=== PATIENT | female | born 1940 | race Caucasian/White ===

== ENCOUNTER → 2016-03-30 | Outpatient (CLI) | payer OTHER ==
--- NOTE | 2016-03-30 17:21 | DX ---
Chest, PA and Lateral History: Cough and congestion since February Comparison: None Findings: Lungs are clear, without infiltrate or consolidation. Heart size is mildly enlarged. The pu lmonary vascularity is normal.. There is no adenopathy or mass lesion. There is no pleural effusion . The patient has a prominent thoracic kyphosis. There is a likely old mild T8 superior endplate compr ession. Impression: 1. No evidence for pneumonia 2. Mild cardiomegaly without failure 3. Mild T8 compression, likely old. This patient might benefit from a DEXA scan. If there are any old outside x-rays of the thoracic spine, we would be happy to review them, to assess for interval nguyen e.
== END ==
LOC: FIMAGING 16:48
PROVIDERS: ATTEND Family Medicine
DX: I51.7 Cardiomegaly (principal)

== ENCOUNTER 2017-05-20 13:38 | Observation (INO) | payer OTHER ==
--- NOTE | 2017-05-14 14:23 | CPEKG ---
Heart Rate: 99 RR Interval: 606 P-R Interval: 172 QRSD Interval: 74 QT Interval: 432 QTC Interval: 555 P [place]: 0 QRS [place]: 24 T Wave [place]: 69 EKG Severity - ABNORMAL ECG - EKG Impression: SINUS RHYTHM Electronically Signed By: Cecilio Pickard 14-May-2017 14:25:28
[2017-05-20] MEDS ORDERED: LR 1,000 ML IV ONE (14:12)
[2017-05-20] MEDS ORDERED: LIDOCAINE 1% 2 ML INJ ID PRN (14:12)
[2017-05-20] MEDS ORDERED: LIDOCAINE 1% 2 ML INJ ONE (14:13)
--- NOTE | 2017-05-20 14:23 | PDHPUP ---
History & Physical Update H&P update statement: This history and physical update is based on an assessment of the patient which was completed after admission or registration (within 24 hours), but prior to the surgery/procedure. H&P update: H&P reviewed & patient examined, no change in patient's condition since H&P completed
[2017-05-20] MEDS ORDERED: MIDAZOLAM 2 MG/2 ML VIAL IVP ONE (15:19)
--- NOTE | 2017-05-20 15:22 | PDANEPAE ---
ANE History of Present Illness 76 year old woman for parathyroidectomy. History of TIA, HTN, Disordered Sleep , Anxiety, and chronic pain. ANE Past Medical History - Cardiovascular History Hx Hypertension: Yes Hx Arrhythmias: No Hx Chest Pain: No Hx Coronary Artery / Peripheral Vascular Disease: No Hx CHF / Valvular Disease: No Hx Palpitations: No - Pulmonary History Hx COPD: No Hx Asthma/Reactive Airway Disease: No Hx Recent Upper Respiratory Infection: No Hx Oxygen in Use at Home: No Hx Sleep Apnea: Yes Sleep Apnea Screening Result - Last Documented: Positive Pulmonary History Comment: ALLERGIES TO SMOKE & ENVIRONMENTAL - INHALER. 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 - NO CPAP - Neurologic History Hx Cerebrovascular Accident: Yes Hx Seizures: No Hx Dementia: No Neurologic History Comment: TIA 2013 - Endocrine History Hx Diabetes: Yes Endocrine History Comment: HYPOACTIVE THYROID - Renal History Hx Renal Disorders: Yes Renal History Comment: CKD - SPIRONOLACTONE - Liver History Hx Hepatic Disorders: Yes Hepatic History Comment: LYNNE - Neurological & Psychiatric Hx Hx Neurological and Psychiatric Disorders: Yes Neurological / Psychiatric History Comment: ANXIETY & MILD DEPRESSION - Cancer History Hx Cancer: No - Congenital Disorder History Hx Congenital Disorders: No - GI History Hx Gastrointestinal Disorders: Yes Gastrointestinal History Comment: ACID REFLUX - Other Health History Other Health History: DVT R YRS AGO W/BCPs - Chronic Pain History Chronic Pain: Yes (BACK PAIN) - Surgical History Prior Surgeries: APPENDECTOMY. BREAST REDUCTION. CARPAL TUNNEL R. CHOLECYSTECTOMY. HYSTERECTOMY/ TUMMY TUCK. EPIDURAL INJS. L TKA X2-R PARTIAL KNEE ANE Review of Systems Review of systems is: negative Review of Systems: - Exercise capacity METS (RN): 3 METS ANE Patient History - Allergies Allergies/Adverse Reactions: No Known Allergies Allergy (Unverified 06/29/13 09:40) - Home Medications Home Medications: Allopurinol [Allopurinol 100 MG (*)] 100 mg PO HS 06/29/13 [Last Taken 05/19/17] Docusate Sodium [Colace 100 MG (*)] 100 mg PO HS 06/29/13 [Last Taken 05/17/17] Hydrocodone/Acetaminophen [[place] 5/325 (*)] 1 each PO DAILY PRN 06/29/13 [Last Taken 05/13/17] Levothyroxine Sodium 75 mcg PO DAILY@06 06/29/13 [Last Taken 05/19/17] Omeprazole [Prilosec 20 mg] 20 mg PO DAILY 06/29/13 [Last Taken 05/13/17] Sennosides [Senokot] 2 each PO HS 06/29/13 [Last Taken 05/15/17] Spironolactone [Aldactone 25 MG (*)] 12.5 mg PO HS 06/29/13 [Last Taken 05/19/17 ] clonazePAM [Klonopin (*)] 0.5 mg PO HS 06/29/13 [Last Taken 05/19/17] Amlodipine Besylate 05/13/17 [Last Taken 05/19/17] Duloxetine HCl 05/13/17 [Last Taken Unknown] Herbals/Supplements -Info Only 05/13/17 [Last Taken Unknown] Promethazine HCl 05/13/17 [Last Taken 05/19/17] Cymbalta 05/20/17 [Last Taken 05/19/17] Vitamin D2 05/20/17 [Last Taken 05/19/17] - NPO status NPO Since - Liquids (Date): 05/20/17 NPO Since - Liquids (Time): 05:30 NPO Since - Solids (Date): 05/20/17 NPO Since - Solids (Time): 05:30 - Smoking Hx Smoking Status: Never smoked - Family Anes Hx Family Hx Anesthesia Complications: NEG ANE Labs/Vital Signs - Labs Result Diagrams: 05/14/17 12:43 - Vital Signs Blood Pressure: 135/84 Heart Rate: 90 Respiratory Rate: 20 O2 Sat (%): 94 Height: 161.29 cm Weight: 86.183 kg ANE Physical Exam - Airway Neck exam: FROM Mallampati Score: Class 2 Mouth exam: dentures - Pulmonary Pulmonary: no respiratory distress - Cardiovascular Cardiovascular: regular rate and rhythym - ASA Status ASA Status: III ANE Anesthesia Plan Anesthesia Plan: general endotracheal anesthesia
[2017-05-20] MEDS ORDERED: PROPOFOL/EMULSION 500 MG/50 ML BOTTLE IV ONE ×2 (15:23→16:42)
[2017-05-20] MEDS ORDERED: fentaNYL 250 MCG/5 ML INJ ONE (15:26)
[2017-05-20] MEDS ORDERED: BUPIVACAINE 0.25% 30 ML SDV ONE (15:31)
[2017-05-20] MEDS ORDERED: LIDOCAINE 1% 300 MG/30 ML SDV ONE (15:31)
[2017-05-20] MEDS ORDERED: LR 500 ML IV PRN (16:22)
[2017-05-20] MEDS ORDERED: PHENYLEPHRINE HCL 100 MCG/ML SYR IVP PRN (16:22)
[2017-05-20] MEDS ORDERED: HYDROCODONE/APAP 5/325 TAB PO PRN ×2 (16:22→17:49)
[2017-05-20] MEDS ORDERED: NALOXONE HCL 0.4 MG/ML INJ IVP PRN (16:22)
[2017-05-20] MEDS ORDERED: LABETALOL HCL 5 MG/ML 20 ML MDV IVP PRN (16:22)
[2017-05-20] MEDS ORDERED: ALBUTEROL 3 ML DEYVIAL IH PRN (16:22)
[2017-05-20] MEDS ORDERED: HYDROmorphONE/DILAUDID 1 MG/ML INJ IVP PRN (16:22)
[2017-05-20] MEDS ORDERED: PROMETHAZINE HCL 25 MG/ML INJ IVP PRN (16:22)
[2017-05-20] MEDS ORDERED: DEXAMETHASONE 4 MG/ML VIAL IVP PRN (16:22)
[2017-05-20] MEDS ORDERED: ONDANSETRON 4 MG/2 ML VIAL IVP PRN (16:22)
[2017-05-20] MEDS ORDERED: MEPERIDINE 25 MG/ML SYR IVP PRN (16:22)
[2017-05-20] MEDS ORDERED: OXYCODONE/APAP 5/325 TAB PO PRN (16:22)
[2017-05-20] MEDS ORDERED: TEMAZEPAM 15 MG CAP PO PRN (17:49)
--- NOTE | 2017-05-20 17:49 | POSTOPPROG ---
Post Op Note Date of Operation: 05/20/17 Surgeon: Corey Evans Anesthesiologist: Lelia Perez Anesthesia: GET(General Endotracheal) Pre-op Diagnosis: Hyperparathyroidism Post-op Diagnosis: Right superior parathyroid adenoma Procedure: Neck exploration, right superior parathyroidectomy Findings: all 4 glands identified, rt superior hypercellular, PTH 215 down to 45 Inf/Abcess present in the surg proc area at time of surgery?: No EBL: Minimal Specimen(s): Right parathyroid adenoma Right inferior neck bx Left inferior neck bx Left superior neck bx
[2017-05-20] MEDS ORDERED: LR 1,000 ML IV SCH (18:00)
[2017-05-20] MEDS ORDERED: fentaNYL 100 MCG/2 ML INJ ONE (18:15)
[2017-05-20] MEDS: fentaNYL 100 MCG/2 ML INJ IVP PRN ×2 (18:17→18:26)
[2017-05-20] MEDS ORDERED: clonazePAM 0.5 MG TAB PO SCH (21:00)
[2017-05-20] MEDS ORDERED: DOCUSATE SODIUM 100 MG CAP PO SCH (21:00)
[2017-05-20] MEDS ORDERED: SPIRONOLACTONE 25 MG TAB PO SCH (21:00)
[2017-05-20] MEDS ORDERED: ALLOPURINOL 100 MG TAB PO SCH (21:00)
[2017-05-20] MEDS ORDERED: CALCIUM CARBONATE 500 MG CHEWABLE TAB PO SCH (22:00)
[2017-05-20] MEDS: CALCIUM CARBONATE 1000 MG PO SCH (22:14)
[2017-05-21] MEDS: HYDROCODONE/APAP 5/325 TAB PO PRN ×3 (02:06→10:50)
[2017-05-21] MEDS ORDERED: LEVOTHYROXINE 75 MCG TAB PO SCH (06:00)
--- NOTE | 2017-05-21 06:40 | GOP ---
[f rep st] OPERATIVE REPORT DATE OF OPERATION: SURGEON: Corey Evans MD FLAT HAMMERER: Fidel Quinonez. ANESTHESIA: General endotracheal anesthesia was used. ANESTHESIOLOGIST: Dr. Kaylynn Perez. PREOPERATIVE DIAGNOSIS: Hyperparathyroidism. POSTOPERATIVE DIAGNOSIS: Right superior parathyroid adenoma. PROCEDURE PERFORMED: Right parathyroidectomy with neck biopsies. INDICATIONS: 76-year-old woman with a documented history of hyperparathyroidism. Sestamibi scan shows a possible adenoma in the mid part of the thyroid. FINDINGS: Four parathyroid glands identified, the largest being over 800 mg in the right upper neck being the superior gland with hypercellular pattern on frozen section. Laboratory studies done at 10 minutes and 15 minutes post biopsy of the parathyroid adenoma, went from 251 down to 48 and then 33 respectively. The patient had no complications. SPECIMENS: Right parathyroid adenoma, right inferior neck biopsy, left superior neck biopsy and left inferior neck biopsy. DESCRIPTION OF PROCEDURE: Patient was brought to the operating room. After induction of endotracheal anesthesia in the supine position, her neck was prepped with chlorhexidine and draped sterilely. Time-out procedure was then performed according to institutional standards. Local anesthetic was infused in skin, subcutaneous tissues and the incision was made transversely, deepened with electrocautery. After dividing the platysma transversely, the strap muscles are divided longitudinally. The self-retaining retractors were placed along with a Green retractor. Left and right thyroid lobes are committed. All 4 parathyroid glands were identified with careful dissection and biopsied with clip placed on each section except for the parathyroid adenoma in the right upper neck which was completely excised and sent in total. After confirmation of hypercellular and hypocellular glands in the respective positions, the area was ensured to be hemostatic with clips and Jessa. The neck was closed in the midline using 3-0 Vicryl. Platysma was reapproximated and the neck was closed in layers using 3-0 Monocryl Vicryl and 4-0 Monocryl. Dermabond was applied. Patient was awakened, extubated, taken to recovery room in stable condition. No immediate complications. COMPLICATIONS: There were no complications. /[id number]/MODL MTDD
[2017-05-21] MEDS: CALCIUM CARBONATE 1000 MG PO SCH (08:47)
[2017-05-21] MEDS ORDERED: PANTOPRAZOLE SODIUM 40 MG TAB PO SCH (09:00)
[2017-05-21 11:25] VITALS: BP 112/63
--- NOTE | 2017-05-24 17:46 | PDDCSUM ---
Discharge Summary Discharge Summary: Admission diagnosis hyperparathyroidism Discharge diagnosis same Principal procedure parathyroidectomy right superior parathyroid adenoma This is a 76-year-old patient presented with a history of hyperparathyroidism for elective exploration and treatment. The patient underwent uncomplicated neck exploration with identification of all 4 parathyroid glands. Right superior parathyroid adenoma was identified and removed consistent with pathology seen on final report. Patient was kept overnight for multiple comorbid problems she did well she was able tolerated diet her pain was controlled with oral analgesics and she had no difficulty with hypocalcemia. The patient was back to her baseline cardiopulmonary status and will be discharged home with follow-up in the office 1-2 weeks all questions were addressed patient's daughter was not present for her exams and discussions. Allopurinol [Allopurinol 100 MG (*)] 100 mg PO HS 06/29/13 [Last Taken 05/19/17] Docusate Sodium [Colace 100 MG (*)] 100 mg PO HS 06/29/13 [Last Taken 05/17/17] Hydrocodone/Acetaminophen [[place] 5/325 (*)] 1 each PO DAILY PRN 06/29/13 [Last Taken 05/13/17] Omeprazole [Prilosec 20 mg] 20 mg PO DAILY 06/29/13 [Last Taken 05/13/17] Sennosides [Senokot] 2 each PO HS 06/29/13 [Last Taken 05/15/17] Spironolactone [Aldactone 25 MG (*)] 12.5 mg PO DAILY 06/29/13 [Last Taken 05/19] clonazePAM [Klonopin (*)] 0.5 mg PO HS 06/29/13 [Last Taken 05/19/17] Promethazine HCl [Phenergan 25mg (*)] 25 mg PO DAILY PRN 05/13/17 [Last Taken ] amLODIPine BESYLATE [Amlodipine Besylate] 2.5 mg PO HS 05/13/17 [Last Taken ] Atorvastatin Calcium [Lipitor 20 mg (*)] 40 mg PO HS 05/20/17 [Last Taken ] Cholecalciferol Vit D3 [Vitamin D3 (*)] 1,000 units PO HS 05/20/17 [Last Taken 05/19/17] Clopidogrel Bisulfate [Plavix (*)] 75 mg PO HS 05/20/17 [Last Taken 05/13/17] DULoxetine [Cymbalta 60 MG (*)] 60 mg PO HS 05/20/17 [Last Taken 05/19/17] Herbals/Supplements -Info Only 1 ea PO DAILY 05/20/17 [Last Taken Unknown] Levothyroxine Sodium 50 mcg PO DAILY06 05/20/17 [Last Taken 05/19/17]
--- NOTE | 2017-07-08 18:31 | GPROG ---
[f rep st] GENERAL PROGRESS NOTE POST-ANESTHESIA EVALUATION Ms. Jiménez was taken to the postanesthesia care unit. Report was given to the receiving registered nurse. Ms. Jiménez was utilizing oxygen by mask. Her vital signs were stable. She had no issues with nausea, vomiting, or pain. There were no complications. /[id number]/MODL MTDD
== END 2017-05-21 12:45 | disposition home or self-care (01) ==
LOC: FSGY 13:38 → F3E 17:49
PROVIDERS: ADMIT Surgery; ATTEND Surgery
PROC: 0GTL0ZZ Resection of Right Superior Parathyroid Gland, Open Approach (ICD-10-PCS; principal; 2017-05-20 15:00)
DX: D35.1 Benign neoplasm of parathyroid gland (principal); E21.0 Primary hyperparathyroidism
CPT/HCPCS: 60500; 88305; 88331; 93005; G0378; J2250; J2704; J3010

== ENCOUNTER 2017-11-08 09:16 | Day surgery (SDC) | payer OTHER ==
[2017-11-08] MEDS ORDERED: ceFAZolin 2 GM/DEXTROSE 100 ML IV ONE (09:17)
[2017-11-08] MEDS ORDERED: LR 1,000 ML IV ONE (09:17)
[2017-11-08] MEDS ORDERED: MIDAZOLAM 2 MG/2 ML VIAL ONE (09:51)
[2017-11-08] MEDS ORDERED: MIDAZOLAM 2 MG/2 ML VIAL IVP ONE (09:53)
--- NOTE | 2017-11-08 09:54 | PDANEPAE ---
ANE History of Present Illness here for R foot bunionectomy ANE Past Medical History - Cardiovascular History Hx Hypertension: Yes Hx Arrhythmias: No Hx Chest Pain: No Hx Coronary Artery / Peripheral Vascular Disease: No Hx CHF / Valvular Disease: No Hx Palpitations: No - Pulmonary History Hx COPD: No Hx Asthma/Reactive Airway Disease: No Hx Recent Upper Respiratory Infection: No Hx Oxygen in Use at Home: No Hx Sleep Apnea: Yes Sleep Apnea Screening Result - Last Documented: Positive Pulmonary History Comment: ALLERGIES TO SMOKE & ENVIRONMENTAL - INHALER. 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 - NO CPAP - Neurologic History Hx Cerebrovascular Accident: Yes Hx Seizures: No Hx Dementia: No Neurologic History Comment: TIA 2013 - Endocrine History Hx Diabetes: No Endocrine History Comment: HYPOACTIVE THYROID - Renal History Hx Renal Disorders: Yes Renal History Comment: CKD - SPIRONOLACTONE - Liver History Hx Hepatic Disorders: Yes Hepatic History Comment: LYNNE - Neurological & Psychiatric Hx Hx Neurological and Psychiatric Disorders: Yes Neurological / Psychiatric History Comment: ANXIETY & MILD DEPRESSION - Cancer History Hx Cancer: No - Congenital Disorder History Hx Congenital Disorders: No - GI History Hx Gastrointestinal Disorders: Yes Gastrointestinal History Comment: ACID REFLUX - Other Health History Other Health History: DVT R YRS AGO W/BCPs. gout. bunions, osteoarthitis of feet. Upper dentures, partials on bottom. wears glasses - Chronic Pain History Chronic Pain: Yes (BACK PAIN) - Surgical History Prior Surgeries: Parathyroidectomy, 05/2017. APPENDECTOMY. BREAST REDUCTION. CARPAL TUNNEL R. CHOLECYSTECTOMY. HYSTERECTOMY/ TUMMY TUCK. EPIDURAL INJS. L TKA X2-R PARTIAL KNEE. tonsilectomy ANE Review of Systems Review of systems is: negative Review of Systems: - Exercise capacity Exercise capacity: >=4 METS METS (RN): 4 METS ANE Patient History - Allergies Allergies/Adverse Reactions: morphine Adverse Reaction (Verified 11/08/17 09:46) Vomiting - Home Medications Home medications: home medication list seen and reviewed Home Medications: Allopurinol [Allopurinol 100 MG (*)] 06/29/13 [Last Taken 1 Day Ago ~11/07/17] Docusate Sodium [Colace 100 MG (*)] 06/29/13 [Last Taken 2 Days Ago ~11/06/17] Hydrocodone/Acetaminophen [[place] 5/325 (*)] 06/29/13 [Last Taken 1 Day Ago ~08/19] Omeprazole [Prilosec 20 mg] 06/29/13 [Last Taken 1 Day Ago ~11/07/17] Sennosides [Senokot] 06/29/13 [Last Taken 2 Days Ago ~11/06/17] Spironolactone [Aldactone 25 MG (*)] 06/29/13 [Last Taken 1 Day Ago ~11/07/17] clonazePAM [Klonopin (*)] 06/29/13 [Last Taken 1 Day Ago ~11/07/17] Promethazine HCl [Phenergan 25mg (*)] 05/13/17 [Last Taken 1 Month Ago ~] amLODIPine BESYLATE [Amlodipine Besylate] 05/13/17 [Last Taken 1 Day Ago ~11/07] Atorvastatin Calcium [Lipitor 20 mg (*)] 05/20/17 [Last Taken 1 Day Ago ~] Cholecalciferol Vit D3 [Vitamin D3 (*)] 05/20/17 [Last Taken 1 Week Ago ~] Clopidogrel Bisulfate [Plavix (*)] 05/20/17 [Last Taken 10/30/17] DULoxetine [Cymbalta 60 MG (*)] 05/20/17 [Last Taken 1 Day Ago ~11/07/17] Herbals/Supplements -Info Only 05/20/17 [Last Taken Unknown] Levothyroxine Sodium 05/20/17 [Last Taken 1 Day Ago ~11/07/17] - NPO status NPO Status: no food or drink >8 hours NPO Since - Liquids (Date): 11/07/17 NPO Since - Liquids (Time): 23:00 NPO Since - Solids (Date): 11/07/17 NPO Since - Solids (Time): 23:00 - Smoking Hx Smoking Status: Never smoked - Family Anes Hx Family Hx Anesthesia Complications: NEG ANE Labs/Vital Signs - Vital Signs Vital Signs: reviewed preoperatively; see RN documention for details Blood Pressure: 156/99 Heart Rate: 76 Respiratory Rate: 20 O2 Sat (%): 96 Height: 160.02 cm Weight: 86.183 kg ANE Physical Exam - Airway Neck exam: FROM Mallampati Score: Class 1 Mouth exam: dentures - Pulmonary Pulmonary: no respiratory distress - Cardiovascular Cardiovascular: regular rate and rhythym - ASA Status ASA Status: III ANE Anesthesia Plan Anesthesia Plan: GA w LMA [facility] Anesthesia: single shot NB
[2017-11-08] MEDS ORDERED: fentaNYL 100 MCG/2 ML INJ ONE ×2 (09:56→10:28)
[2017-11-08] MEDS ORDERED: PROPOFOL 200 MG/20 ML VIAL ONE ×2 (09:58→10:21)
[2017-11-08] MEDS ORDERED: ONDANSETRON 4 MG/2 ML VIAL ONE (10:18)
[2017-11-08] MEDS ORDERED: DEXAMETHASONE 4 MG/ML VIAL ONE (10:18)
--- NOTE | 2017-11-08 11:29 | POSTOPPROG ---
Post Op Note Date of Operation: 11/08/17 Surgeon: James Richey Splicer Apprentice: Lizz Anesthesiologist: Jagdish Anesthesia: GET(General Endotracheal) Pre-op Diagnosis: righthalluxrigidus,bunionette Post-op Diagnosis: sa,e Indication: above Procedure: rightcartiva, rightscarf bunionette Inf/Abcess present in the surg proc area at time of surgery?: No EBL: Minimal
[2017-11-08] MEDS ORDERED: ONDANSETRON 4 MG/2 ML VIAL IVP PRN (11:47)
[2017-11-08] MEDS ORDERED: ALBUTEROL 3 ML DEYVIAL IH PRN (11:47)
[2017-11-08] MEDS ORDERED: HYDROmorphONE/DILAUDID 1 MG/ML INJ IVP PRN (11:47)
[2017-11-08] MEDS ORDERED: fentaNYL 100 MCG/2 ML INJ IVP PRN (11:47)
[2017-11-08] MEDS ORDERED: HYDROCODONE/APAP 5/325 TAB PO PRN (11:47)
[2017-11-08] MEDS ORDERED: DEXAMETHASONE 4 MG/ML VIAL IVP PRN (11:47)
[2017-11-08] MEDS ORDERED: NALOXONE HCL 0.4 MG/ML INJ IVP PRN (11:47)
[2017-11-08] MEDS ORDERED: oxyCODONE IR 5 MG TAB PO PRN (11:47)
--- NOTE | 2017-11-08 11:49 | POSTANESTH ---
Post Anesthetic Evaluation Cardiovascular Status: Normal, Stable Respiratory Status: Normal, Stable Level of Consciousness/Mental Status: Can Participate in Eval Pain Control: Adequate, Prn Tx Ordered Nausea/Vomiting Control: Adequate, Prn Tx Ordered Complications Possibly Related to Anesthesia: None Noted
--- NOTE | 2017-11-08 12:31 | GOP ---
DATE OF OPERATION: 11/08/2017 SURGEON: James Richey MD SVP [employer] AD SALES: Jason Zamudio [employer]. ANESTHESIA: General with popliteal block. PREOPERATIVE DIAGNOSIS: Right hallux rigidus, right bunionette deformity. POSTOPERATIVE DIAGNOSIS: Right hallux rigidus, right bunionette deformity. PROCEDURE PERFORMED: 1. Right foot Cartiva procedure implant arthroplasty of great toe. 2. Right scarf bunionette correction. FINDINGS: SPECIMENS: None. ESTIMATED BLOOD LOSS: 5 mL. INDICATIONS: This is a 77-year-old female who had a previous cheilectomy and a Silver type bunionett e. She did not do well with either one. She developed more arthritis in the big toe and continued t o have pain and the bunionette. I discussed doing a Cartiva procedure for better pain relief as well as correcting her bunion over the scar and she elected to proceed. We discussed the risks of nonuni on, malunion, continued bony prominences, continued pain, failure of the implant, need for fusion, an d need for further correction. She would like to proceed. Informed consent was obtained. All quest ions were answered and she was marked preoperatively. DESCRIPTION OF PROCEDURE: She was sterilely prepped in a normal fashion. Time-out was performed, ve rifying site, side, location, agreement by team. Esmarch was utilized, tourniquet was inflated. I m delilah an incision over the dorsum of the great toe following the old incision, followed this down to th e joint. I had previously performed a cheilectomy and this did look maintained. I mobilized the chelsy nt and plantar flexed the toe. She really had complete loss of articular cartilage in the central po rtion of the joint. I placed a guide pin more plantarly than usual given the previous cheilectomy an d checked this fluoroscopically and it was center-center. I selected 8 mm implants so that we would have adequate bone stock on both sides. I then drilled this and underreamed, placed the implant, and it was a couple millimeters proud by design to distract the joint and she moved well with this. Attention was turned to the scar. I made an incision over the 5th metatarsal and dissected down the bunionette. I removed significant amounts of scar tissue near the head and resected some of the caps ule for later closure. I outlined the scarf and made this cut with a sagittal saw. I then displaced this medially and corrected the deformity. I placed guide pins and placed compression across this, corrected the deformity, had compression. I drilled and placed 2 Arthrex headless 2.5 compression sc rews. I then used a saw to shave off the remaining bone. I felt that corrected the bunionette. I p laced her toe in a correct position, plicated the capsule with 0 Vicryl, moving down the capsule and had removed the bony prominence. She was closed with 0 Vicryl, 2-0 Vicryl, 3-0 Quill, and Dermabond after being irrigated and taken to PACU in stable condition. IMPLANTS: The Cartiva 8 mm implant as well as 2 Arthrex headless 2.5 compression screws for the scar f. COMPLICATIONS: None. DRAINS: None. CONDITION: Stable. /[id number]/MODL
[2017-11-08 13:12] VITALS: BP 120/80
== END 2017-11-08 13:02 | disposition home or self-care (01) ==
LOC: FSGY 09:16
PROVIDERS: ATTEND Orthopaedic Surgery
PROC: 0SRM0JZ Replacement of Right Metatarsal-Phalangeal Joint with Synthetic Substitute, Open Approach (ICD-10-PCS; principal; 2017-11-08 10:30)
PROC: 0QSN04Z Reposition Right Metatarsal with Internal Fixation Device, Open Approach (ICD-10-PCS; principal; 2017-11-08 10:30)
DX: M20.21 Hallux rigidus, right foot (principal); M21.621 Bunionette of right foot; I10 Essential (primary) hypertension; Z86.73 Personal history of transient ischemic attack (TIA), and cerebral infarction without residual deficits; Z86.718 Personal history of other venous thrombosis and embolism; Z96.652 Presence of left artificial knee joint
CPT/HCPCS: C1713; J0690; J1100; J2250; J2405; J2704; J3010

== ENCOUNTER → 2018-07-03 | Outpatient (CLI) | payer OTHER | LOC: FIMAGING 13:39 | PROVIDERS: ATTEND Family Medicine | DX: M62.838 Other muscle spasm (principal); M50.322 Other cervical disc degeneration at C5-C6 level; M50.323 Other cervical disc degeneration at C6-C7 level ==

== ENCOUNTER → 2018-07-26 | Outpatient (CLI) | payer OTHER | LOC: FIMAGING 11:25 | PROVIDERS: ATTEND Orthopaedic Surgery | DX: Z01.818 Encounter for other preprocedural examination (principal); M17.11 Unilateral primary osteoarthritis, right knee ==

== ENCOUNTER 2018-07-29 07:11 | Inpatient (IN) | payer OTHER ==
--- NOTE | 2018-07-28 14:16 | GHP ---
[f rep st] PREOP HISTORY AND PHYSICAL DATE OF ADMISSION: 07/29/2018 DATE OF PLANNED PROCEDURE: 07/29/2018. ADMISSION DIAGNOSIS: Osteoarthritis, right knee. PLANNED PROCEDURE: Revision partial knee replacement to a total knee arthroplasty Keith . HISTORY OF PRESENT ILLNESS: The patient is a 77-year-old female who underwent a right medial sided p artial knee replacement in 2011. She has developed worsening pain and stiffness over the last 9 otis hs. X-rays showed loosening of both the femoral and tibial components, and decision was made to proc eed with a revision of a medial sided knee replacement with conversion to a total knee arthroplasty. PRIOR MEDICAL HISTORY: Anxiety disorder, asthma, depression, high cholesterol, reflux, gout, kidney disease, TIA, hypothyroidism. SURGICAL HISTORY: DICTATION ENDS AT THIS POINT. /[id number]/MODL
--- NOTE | 2018-07-28 14:21 | GHP ---
[f rep st] PREOP HISTORY AND PHYSICAL DATE OF ADMISSION: 07/29/2018 ADMISSION DIAGNOSIS: Osteoarthritis, right knee. PLANNED PROCEDURE: Conversion partial medial arthroplasty to a total knee arthroplasty with Keith sanz ist. HISTORY OF PRESENT ILLNESS: The patient is a 77-year-old female who underwent a partial medial repla cement in 2011, has developed loosening of the prosthesis, and we have decided to proceed with revisi on to a total knee arthroplasty on the right. PRIOR MEDICAL HISTORY: Anxiety, asthma, depression, high cholesterol, reflux, gout, TIA, hypothyroid ism. SURGICAL HISTORY: Left total knee replacement 2000, right partial replacement 2011, hallux surgery 2 018, cholecystectomy. MEDICATIONS: Allopurinol 100 mg, amlodipine 2.5 mg, atorvastatin 40 mg, Plavix 75 mg, furosemide 40 mg, gabapentin 300 mg 3 times a day, omeprazole 20 mg a day, levothyroxine 50 mcg a day. ALLERGIES: Morphine. She is nauseated with that. SOCIAL HISTORY: She does not smoke. Does not drink alcohol. REVIEW OF SYSTEMS: No shortness of breath or chest pain. Otherwise, review of systems is unremarkab le. PHYSICAL EXAMINATION: VITAL SIGNS: She is 5 feet 3 inches tall, weighs 195 pounds. Blood pressure is 110/78, heart rate 74, respiratory rate 16 on room air. GENERAL: Alert and oriented x3. HEENT: Normocephalic, atraumatic. Extraocular muscles intact. NECK: Supple. No lymphadenopathy. No JVD . CHEST: Clear to auscultation. CARDIOVASCULAR: Regular rate and rhythm. ABDOMEN: Soft, nontend er, distended. EXTREMITIES: Right knee shows a well-healed midline incision. No effusion. Alignme nt is straight. She is tender along the medial joint line. She has full extension, flexes to 100 de grees. Knee is otherwise stable to varus/valgus stress testing. 1+ Jennifer with a firm endpoint. N egative posterior drawer. Calf is soft. 1+ dorsalis pedis/posterior tibial pulses. 5/5 ankle dorsif lexion strength. RADIOLOGY: X-rays show some lucency around both the femoral and tibial components. Moderate to dara re arthritis in the patellofemoral and lateral compartment as well. ASSESSMENT: Loosening medial knee replacement with progression of disease in the patellofemoral and lateral compartments. PLAN: I recommend proceeding with a revision of a partial knee replacement with full knee replacehi aguilar with Keith assist. Risks and benefits of the surgery including infection, postoperative stiffness w ere all discussed. She understands these risks and wished to proceed. We will plan on surgery Maggi renner at the hospital. /[id number]/MODL
[2018-07-29] MEDS ORDERED: ceFAZolin 2 GM/DEXTROSE 100 ML IV ONE (07:40)
[2018-07-29] MEDS ORDERED: LR 1,000 ML IV ONE (07:41)
[2018-07-29] MEDS ORDERED: LIDOCAINE 1% 2 ML INJ ID PRN (07:41)
[2018-07-29] MEDS ORDERED: THROMBIN (BOVINE) 5,000 UNIT VIAL TP ONE (07:49)
[2018-07-29] MEDS ORDERED: CALCIUM CHLORIDE 1 GM/10 ML INJ ONE (07:49)
[2018-07-29] MEDS ORDERED: ceFAZolin 1 GM/5 ML SYR ONE (07:50)
--- NOTE | 2018-07-29 08:22 | PDANEPAE ---
ANE History of Present Illness Right knee OA ANE Past Medical History - Cardiovascular History Hx Hypertension: Yes Hx Arrhythmias: No Hx Chest Pain: No Hx Coronary Artery / Peripheral Vascular Disease: No Hx CHF / Valvular Disease: No Hx Palpitations: No - Pulmonary History Hx COPD: No Hx Asthma/Reactive Airway Disease: No Hx Recent Upper Respiratory Infection: No Hx Oxygen in Use at Home: No Hx Sleep Apnea: Yes Sleep Apnea Screening Result - Last Documented: Positive Pulmonary History Comment: ALLERGIES TO SMOKE & ENVIRONMENTAL - INHALER. 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 - NO CPAP - Neurologic History Hx Cerebrovascular Accident: Yes Hx Seizures: No Hx Dementia: No Neurologic History Comment: TIA 2013 - Endocrine History Hx Diabetes: No Endocrine History Comment: HYPOACTIVE THYROID - Renal History Hx Renal Disorders: Yes Renal History Comment: CKD - SPIRONOLACTONE - Liver History Hx Hepatic Disorders: Yes Hepatic History Comment: LYNNE - Neurological & Psychiatric Hx Hx Neurological and Psychiatric Disorders: Yes Neurological / Psychiatric History Comment: ANXIETY & MILD DEPRESSION - Cancer History Hx Cancer: No - Congenital Disorder History Hx Congenital Disorders: No - GI History Hx Gastrointestinal Disorders: Yes Gastrointestinal History Comment: ACID REFLUX - Other Health History Other Health History: DVT YRS AGO W/BCPs. gout. bunions, osteoarthitis of feet. Upper dentures, partials on bottom. wears glasses - Chronic Pain History Chronic Pain: Yes (SCIATICA & BACK PAIN) - Surgical History Prior Surgeries: BUNIONECTOMY R. Parathyroidectomy, 05/2017. APPENDECTOMY. BREAST REDUCTION. CARPAL TUNNEL R. CHOLECYSTECTOMY. HYSTERECTOMY/ TUMMY TUCK. EPIDURAL INJS. L TKA X2-R PARTIAL KNEE. tonsilectomy ANE Review of Systems Review of Systems: - Exercise capacity METS (RN): 4 METS ANE Patient History - Allergies Allergies/Adverse Reactions: No Known Allergies Allergy (Verified 07/16/18 11:01) - Home Medications Home medications: home medication list seen and reviewed Home Medications: Allopurinol [Allopurinol 100 MG (*)] 100 mg PO HS 06/29/13 [Last Taken 1 Day Ago ~07/28/18] Hydrocodone/Acetaminophen [[place] 5/325 (*)] 1 each PO DAILY PRN 06/29/13 [Last Taken 2 Weeks Ago ~07/15/18] Sennosides [Senokot] 1 tab PO BID 06/29/13 [Last Taken 1 Day Ago ~07/28/18] Spironolactone [Aldactone 25 MG (*)] 12.5 mg PO HS 06/29/13 [Last Taken 1 Day Ago ~07/28/18] clonazePAM [Klonopin (*)] 0.5 mg PO HS 06/29/13 [Last Taken 1 Day Ago ~07/28/18] Promethazine HCl [Phenergan 25mg (*)] 25 mg PO DAILY PRN 05/13/17 [Last Taken 3 Weeks Ago ~07/08/18] Cholecalciferol Vit D3 [Vitamin D3 (*)] 1,000 units PO DAILY 05/20/17 [Last Taken 1 Week Ago ~07/22/18] Clopidogrel Bisulfate [Plavix (*)] 72 mg PO HS 05/20/17 [Last Taken 07/23/18 21: 00] DULoxetine [Cymbalta 60 MG (*)] 60 mg PO HS 05/20/17 [Last Taken 1 Day Ago ~] Atorvastatin Calcium [Lipitor 40 mg (*)] 40 mg PO HS 07/16/18 [Last Taken 1 Day Ago ~07/28/18] Cyclobenzaprine [Flexeril 10 MG (*)] 5 mg PO BID 07/16/18 [Last Taken 1 Week Ago ~07/22/18] Levothyroxine [Synthroid 50 mcg (*)] 50 mcg PO DAILY06 07/16/18 [Last Taken 1 Day Ago ~07/28/18] Pantoprazole Sodium [Protonix 40mg (*)] 40 mg PO DAILY 07/16/18 [Last Taken 2 Days Ago ~07/27/18] amLODIPine BESYLATE [Norvasc 2.5 mg (*)] 2.5 mg PO HS 07/16/18 [Last Taken 07/28 21:30] - NPO status NPO Since - Liquids (Date): 07/28/18 NPO Since - Liquids (Time): 21:30 NPO Since - Solids (Date): 07/28/18 NPO Since - Solids (Time): 22:00 - Anes Hx Anes Hx: no prior problems (Attempted spinal without success in [place]) - Smoking Hx Smoking Status: Never smoked - Family Anes Hx Family Hx Anesthesia Complications: NEG ANE Labs/Vital Signs - Labs Result Diagrams: 07/29/18 08:30 - Vital Signs Blood Pressure: 121/76 Heart Rate: 77 Respiratory Rate: 18 O2 Sat (%): 96 Height: 161.29 cm Weight: 86.183 kg ANE Physical Exam - Airway Neck exam: FROM Mallampati Score: Class 2 Mouth exam: normal dental/mouth exam - Pulmonary Pulmonary: no respiratory distress - Cardiovascular Cardiovascular: regular rate and rhythym - ASA Status ASA Status: III ANE Anesthesia Plan Anesthesia Plan: spinal (with poss GA if unable to place spinal) Regional Anesthesia: adductor canal FNB (to be done in PACU post-op)
[2018-07-29] MEDS ORDERED: MIDAZOLAM 2 MG/2 ML VIAL IVP ONE (09:07)
[2018-07-29] MEDS ORDERED: PROPOFOL 200 MG/20 ML VIAL ONE (09:22)
[2018-07-29] MEDS ORDERED: PROPOFOL/EMULSION 500 MG/50 ML BOTTLE IV ONE ×2 (09:22→10:17)
[2018-07-29] MEDS ORDERED: BUPIVACAINE/EPI 0.5% 30 ML SDV ONE (09:33)
[2018-07-29] MEDS ORDERED: LIDOCAINE 2% 5 ML SDV ONE (09:45)
[2018-07-29] MEDS ORDERED: NALOXONE HCL 0.4 MG/ML INJ IVP PRN (10:14)
[2018-07-29] MEDS ORDERED: PROMETHAZINE HCL 25 MG/ML INJ IVP PRN ×2 (10:14→12:04)
[2018-07-29] MEDS ORDERED: HYDROmorphONE/DILAUDID 1 MG/ML INJ IVP PRN (10:14)
[2018-07-29] MEDS ORDERED: ONDANSETRON 4 MG/2 ML VIAL IVP PRN ×2 (10:14→12:04)
[2018-07-29] MEDS ORDERED: PHENYLEPHRINE HCL 100 MCG/ML SYR ONE (10:16)
[2018-07-29] MEDS ORDERED: ROPIVACAINE HCL 150 MG/30 ML INJ ONE (10:43)
--- NOTE | 2018-07-29 12:03 | POSTOPPROG ---
Post Op Note Date of Operation: 07/29/18 Surgeon: Matthew Gupta Wood Drill Operator: Oscar Ferraro Anesthesiologist: Horace Anesthesia: Spinal Pre-op Diagnosis: OA RT knee with loosening medial arthroplasty Post-op Diagnosis: same Procedure: Revision partial knee to total knee arthroplasty Findings: Severe lateral and PF OA Inf/Abcess present in the surg proc area at time of surgery?: No EBL: 50-100 Complications: none Bowel Protocol: Yes Clean Closure Performed: Yes
[2018-07-29] MEDS ORDERED: PROMETHAZINE HCL 25 MG SUPPR PR PRN (12:04)
[2018-07-29] MEDS ORDERED: DIPHENOXYLATE/ATROPINE LOMOTIL 1 TAB PO PRN (12:04)
[2018-07-29] MEDS ORDERED: TEMAZEPAM 15 MG CAP PO PRN (12:04)
[2018-07-29] MEDS ORDERED: LACTULOSE 20 GM/30 ML UDCUP PO PRN (12:04)
[2018-07-29] MEDS ORDERED: ONDANSETRON DISINTEGRATING 4 MG TAB PO PRN (12:04)
[2018-07-29] MEDS ORDERED: MAGNESIUM HYDROXIDE 30 ML UDCUP PO PRN (12:04)
[2018-07-29] MEDS ORDERED: BISACODYL 10 MG SUPP PR PRN (12:04)
[2018-07-29] MEDS ORDERED: diphenhydrAMINE 25 MG CAP PO PRN (12:04)
--- NOTE | 2018-07-29 12:14 | POSTANESTH ---
Post Anesthetic Evaluation Cardiovascular Status: Similar to Pre-Op Cond Respiratory Status: Similar to Pre-op Cond. Level of Consciousness/Mental Status: Alert and Oriented Pain Control: Adequate, Prn Tx Ordered Nausea/Vomiting Control: Adequate, Prn Tx Ordered Complications Possibly Related to Anesthesia: None Noted (AC block done in PACU. No complications.)
[2018-07-29] MEDS ORDERED: KETOROLAC 15 MG/1 ML SDV ONE (12:23)
[2018-07-29] MEDS ORDERED: LR 1,000 ML IV SCH (12:30)
[2018-07-29] MEDS: KETOROLAC 15 MG/1 ML SDV IVP SCH ×2 (12:43→17:49)
[2018-07-29] MEDS ORDERED: fentaNYL 100 MCG/2 ML INJ ONE (12:49)
[2018-07-29] MEDS: fentaNYL 100 MCG/2 ML INJ IVP PRN ×2 (12:51→13:06)
--- NOTE | 2018-07-29 13:00 | GOP ---
[f rep st] OPERATIVE REPORT DATE OF OPERATION: 07/29/2018 SURGEON: Matthew Gupta MD STOCK CHECKERER: James Ferraro, ASSISTANT MANAGER BILINGUAL, [facility]. ANESTHESIA: Spinal with an adductor canal block. ANESTHESIOLOGIST: Dr. Vu. PREOPERATIVE DIAGNOSIS: Failed medial compartment arthroplasty with progression of osteoarthritis. POSTOPERATIVE DIAGNOSIS: Failed medial compartment arthroplasty with progression of osteoarthritis. PROCEDURE PERFORMED: Revision, partial knee to total knee arthroplasty with JAYDE assist, right knee. FINDINGS: INDICATIONS: Yinka Trent is a 77-year-old female who underwent a partial knee arthroplasty approximate ly 9 years ago on the right knee. It has gone on to cause pain as well as progression of disease. D ecision was made to proceed with revision of a partial to a total knee arthroplasty on the right. DESCRIPTION OF PROCEDURE: After appropriate informed consent was obtained, the patient was taken to the operating room, placed supine on the operating table. Time-out was performed. Patient was ident ified. Correct site was identified, matched with the radiographs available in the room. She receive d 2 g of Ancef preoperatively. Following a spinal anesthetic, she was positioned on the OR table wit h the right lower extremity prepped and draped in the usual sterile fashion. All bony prominences we re well padded. I exsanguinated the limb, inflated the tourniquet to 250 mmHg. Total tourniquet robel e was 106 minutes. She had a previous medially based incision. I extended that to the proximal side, performed a medial parapatellar arthrotomy, and everted the patella. There was full-thickness cartilage loss in the pa tella, patellofemoral compartment, as well as the lateral side. Using a flexible osteotome, I was ab le to easily remove the tibia on the femoral side. Excess cement was removed. We then placed our pi ns for our navigation system using the JAYDE, 2 in the femur, 2 in the tibia, and 2 secondary confirma tion pins, 1 in the femur and 1 in the tibia. We then collected our data points, both on the femur a nd the tibia, and using MAKOplasty, made our femoral cuts, followed by our tibial cuts. We then pinn ed our box cutting guide in place, cut our box, and then placed our size [address]. When I wa s satisfied with the rotation, I pinned that in place, and using our drill and keel hole punch, we pl aced our universal tibial base plate. We then trialed those components, both a 16 and 19 poly. The 19 gave us a little bit of medial stability both at full extension. Trial implants were removed. We then turned our attention to the patella. It measured 24 mm thick. I resected 10 mm from that. Th is sized to a size 35, and we drilled our lug holes. We then mixed our cement, cemented our tibial s oli, femoral side, and patella. Placed our final [address]. Excess cement was removed. W ound was irrigated. Extensor mechanism was closed with 0 Vicryl. I placed 10 mL of PRP over the rep air as well as the cut bone ends. We then placed 15 mL of 0.5% Marcaine with epinephrine into the crow int. Superficial layers were closed with 2-0 Vicryl. Skin was closed with a Quill 3-0 stitch in a s ubcuticular fashion. Steri-Strips were applied to the skin. Sterile dressing was applied. The lizette ent was awakened from anesthesia, taken to the recovery room in satisfactory condition. There were n o immediate intraoperative complications. Oscar Ferraro's assistance was required throughout the entire case. IMPLANTS USED: Razia size 4 posterior stabilized cemented femur, size 4 cemented tibia, 19 mm poly , and a 35 mm cemented patella. COMPLICATIONS: None. DRAINS: None. TOTAL TOURNIQUET TIME: 106 minutes at 250 mmHg. /[id number]/MODL
[2018-07-29] MEDS: oxyCODONE IR 5 MG TAB PO PRN ×3 (14:43→21:24)
--- NOTE | 2018-07-29 14:51 | SOAPPROG ---
LAUREN Progress Note Assessment/Plan: Assessment: s/p right knee medial compartment arthroplasty revision to total knee arthroplasty - procedure earlier today with Dr. Gupta Knee is more sore than she expected initially post-op Plan: Begin d/c planning - likely going home tomorrow or the following day; she will have support of her daughter Continue VTE ppx- restart plavix and aspirin, SCDs Continue PT/OT efforts - WBAT with assistance, ROM as tolerated. Needs clearance from therapy prior to d/c Continue oral pain medications Subjective: Patient states her right knee is more painful than expected, she is wondering if the nerve block worked. Patient states most of the pain is along the outer ( lateral aspect) of the knee. She is hoping to go home either tomorrow or the following day. Her daughter, Solange, will help care for the patient post-op. She denies SOB, CP, fever, chills. States it is a bit difficult to wiggle her right toes. Objective: Vital Signs Temp Pulse Resp BP Pulse Ox 36.1 C 67 14 137/84 H 95 07/29/18 14:10 07/29/18 14:10 07/29/18 14:10 07/29/18 14:10 07/29/18 14:10 Laboratory Results 07/29/18 08:30 07/28/18 07/29/18 07/30/18 05:59 05:59 05:59 Intake Total 1025 Output Total 20 Balance 1005 Patient resting comfortably in bed, no acute distress. RLE: Wound dressings are clean, dry and intact. SCDs are in place bilaterally. Lower leg compartments are soft and nontender. She can actively DF and PF her right foot and great toe , but not as well as the left foot. Grossly NVI distally. ICD10 Worksheet Patient Problems: Problems Problem Status Onset Right knee pain Acute Ataxia Acute TIA (transient ischemic attack) Acute
[2018-07-29] MEDS: CYCLOBENZAPRINE 10 MG TAB PO PRN (15:56)
--- NOTE | 2018-07-29 16:09 | PDMN ---
Medical Necessity Medical necessity: MCG: S700 knee arthroplasty CPT 49923 revision of TKA with or without allograft IPO OP: Revision partial knee to TKA
[2018-07-29] MEDS: ceFAZolin 2 GM/DEXTROSE 100 ML IV SCH (17:48)
[2018-07-29] MEDS: ACETAMINOPHEN 325 MG TAB PO SCH (17:49)
[2018-07-29] MEDS ORDERED: KETOROLAC 15 MG/1 ML SDV IVP SCH (18:00)
[2018-07-29] MEDS: ALLOPURINOL 100 MG TAB PO SCH (20:59)
[2018-07-29] MEDS: ASPIRIN 81 MG CHEWABLE TAB PO SCH (21:01)
[2018-07-29] MEDS: ATORVASTATIN CALCIUM 40 MG TAB PO SCH (21:01)
[2018-07-29] MEDS: clonazePAM 0.5 MG TAB PO SCH (21:02)
[2018-07-29] MEDS: DULoxetine 60 MG CAP PO SCH (21:02)
[2018-07-29] MEDS: CLOPIDOGREL BISULFATE 75 MG TAB PO SCH (21:02)
[2018-07-29] MEDS: SPIRONOLACTONE 25 MG TAB PO SCH (21:03)
[2018-07-29] MEDS: FAMOTIDINE 20 MG TAB PO SCH (21:04)
[2018-07-29] MEDS: SENNOSIDES/DOCUSATE SODIUM TAB PO SCH (21:04)
[2018-07-30] MEDS: ACETAMINOPHEN 325 MG TAB PO SCH ×5 (00:26→23:14)
[2018-07-30] MEDS: ceFAZolin 2 GM/DEXTROSE 100 ML IV SCH (00:27)
[2018-07-30] MEDS: KETOROLAC 15 MG/1 ML SDV IVP SCH ×2 (00:28→05:54)
[2018-07-30] MEDS: oxyCODONE IR 5 MG TAB PO PRN ×6 (00:30→23:14)
[2018-07-30] MEDS: LEVOTHYROXINE 50 MCG TAB PO SCH (05:54)
--- NOTE | 2018-07-30 08:56 | SOAPPROG ---
SOAP Progress Note Assessment/Plan: Assessment: s/p right knee medial compartment arthroplasty revision to total knee arthroplasty - POD 1 - performed by Dr. Gupta Anemia - expected initially post-op, asymptomatic, continue to monitor. Plan: Continue d/c planning - Patient would like to go to rehab at [facility] Continue VTE ppx- Continue plavix and aspirin, SCDs Continue PT/OT efforts - WBAT with assistance, ROM as tolerated. Needs clearance from therapy prior to d/c Continue oral pain medications Subjective: Patient states she is feeling ok this morning, but when she tried to move the right knee her pain increases. Patient states she would feel more comfortable going to rehab for 7-10 days instead of going to her daughter's home or her own home. She denies SOB, CP, fever, chills, nausea, numbness, tingling. Objective: Vital Signs Temp Pulse Resp BP Pulse Ox 36.7 C 67 18 104/62 96 07/30/18 07:48 07/30/18 07:48 07/30/18 07:48 07/30/18 07:48 07/30/18 07:48 Laboratory Results 07/30/18 05:30 07/29/18 08:30 07/29/18 07/30/18 07/31/18 05:59 05:59 05:59 Intake Total 2725 Output Total 320 Balance 2405 Patient resting comfortably in bed, no acute distress. RLE: Wound dressings are the knee are clean, dry and intact. Wound dressings on the distal tibia are saturated with blood. Lower leg compartments are soft and nontender. Negative Homans sign bilaterally. She can actively DF and PF her right foot and great toe against resistance. Grossly NVI distally. ICD10 Worksheet Patient Problems: Problems Problem Status Onset Right knee pain Acute Ataxia Acute TIA (transient ischemic attack) Acute
[2018-07-30] MEDS: ASPIRIN 81 MG CHEWABLE TAB PO SCH ×2 (09:31→20:46)
[2018-07-30] MEDS: SENNOSIDES/DOCUSATE SODIUM TAB PO SCH ×2 (09:31→20:48)
[2018-07-30] MEDS: CHOLECALCIFEROL VIT D3 1,000 UNITS TAB PO SCH (09:31)
[2018-07-30] MEDS: PANTOPRAZOLE SODIUM 40 MG TAB PO SCH (09:32)
[2018-07-30] MEDS ORDERED: NS 500 ML IV ONE (09:59)
--- NOTE | 2018-07-30 13:51 | ASMTCMCOM ---
CM Note CM Note Notes: Pt had planned OA of knee. Pt resides alone. PT/OT rec SNF. Pt agrees SNF will be safest discharge and requests to rehab at [facility] where her mother resides. Referral sent in [employer] and pt clinically accepted. BM has sent for [employer] insurance authorization. D/c plan of care: [facility] when insurance approves and pt medically stable Date Signed: 07/30/2018 01:51 PM Electronically Signed By:ROBBIN Soria
[2018-07-30] MEDS: CYCLOBENZAPRINE 10 MG TAB PO PRN (14:58)
[2018-07-30] MEDS: ALLOPURINOL 100 MG TAB PO SCH (20:44)
[2018-07-30] MEDS: ATORVASTATIN CALCIUM 40 MG TAB PO SCH (20:46)
[2018-07-30] MEDS: clonazePAM 0.5 MG TAB PO SCH (20:47)
[2018-07-30] MEDS: CLOPIDOGREL BISULFATE 75 MG TAB PO SCH (20:47)
[2018-07-30] MEDS: FAMOTIDINE 20 MG TAB PO SCH (20:47)
[2018-07-30] MEDS: DULoxetine 60 MG CAP PO SCH (20:47)
[2018-07-30] MEDS: SPIRONOLACTONE 25 MG TAB PO SCH (20:48)
[2018-07-31] MEDS: oxyCODONE IR 5 MG TAB PO PRN (04:07)
[2018-07-31] MEDS: ACETAMINOPHEN 325 MG TAB PO SCH (05:13)
[2018-07-31] MEDS: LEVOTHYROXINE 50 MCG TAB PO SCH (05:13)
[2018-07-31] MEDS: ASPIRIN 81 MG CHEWABLE TAB PO SCH ×2 (08:53→20:19)
[2018-07-31] MEDS: PANTOPRAZOLE SODIUM 40 MG TAB PO SCH (08:53)
[2018-07-31] MEDS: CHOLECALCIFEROL VIT D3 1,000 UNITS TAB PO SCH (08:53)
[2018-07-31] MEDS: SENNOSIDES/DOCUSATE SODIUM TAB PO SCH ×2 (08:54→20:18)
[2018-07-31] MEDS ORDERED: ACETAMINOPHEN 325 MG TAB PO PRN (09:07)
[2018-07-31] MEDS: POLYETHYLENE GLYCOL 3350 17 GM PKT PO PRN (09:08)
--- NOTE | 2018-07-31 10:08 | SOAPPROG ---
SOAP Progress Note Assessment/Plan: Assessment: s/p right knee medial compartment arthroplasty revision to total knee arthroplasty - POD 2 - performed by Dr. Gupta Anemia - expected initially post-op, asymptomatic, continue to monitor. Plan: Continue d/c planning - Patient would like to go to rehab at [facility]. Awaiting insurance authorization. States she is feeling better Continue VTE ppx- Continue plavix and aspirin, SCDs Continue PT/OT efforts - WBAT with assistance, ROM as tolerated. Needs clearance from therapy prior to d/c Continue oral pain medications Subjective: Patient states she is feeling better today. She did become a bit lightheaded with PT, but that resolved. She is still wanting to go to [facility]. She denies SOB, CP, fever, chills, nausea, numbness, tingling, dizziness. Objective: Vital Signs Temp Pulse Resp BP Pulse Ox 36.9 C 71 12 97/64 L 94 07/31/18 07:29 07/31/18 07:29 07/31/18 07:29 07/31/18 07:29 07/31/18 09:09 Laboratory Results 07/31/18 05:13 07/29/18 08:30 07/30/18 07/31/18 08/01/18 05:59 05:59 05:59 Intake Total 2725 Output Total 320 850 Balance 2405 -850 Patient sitting comfortably in her chair, no acute distress. RLE: The superior aspect of the wound dressings are sliding down her leg. Kerlix and another ZEKE wrap were applied to fully cover the incision. Dressings are clean and dry. Lower leg compartments are soft and nontender. She can actively DF and PF her right foot and great toe against resistance. Grossly NVI distally. ICD10 Worksheet Patient Problems: Problems Problem Status Onset Right knee pain Acute Ataxia Acute TIA (transient ischemic attack) Acute
[2018-07-31] MEDS: HYDROCODONE/APAP 5/325 TAB PO PRN ×3 (10:50→20:56)
--- NOTE | 2018-07-31 17:04 | ASMTCMCOM ---
CM Note CM Note Notes: By close of business [employer] insurance auth is not obtained by Will Zhang. Pt is pre-arranged with transport for 1300 tomorrow in the case the insurance authorization comes in. D/c plan: [facility] when insurance approves Date Signed: 07/31/2018 05:03 PM Electronically Signed By:ROBBIN Soria
[2018-07-31] MEDS: ALLOPURINOL 100 MG TAB PO SCH (20:18)
[2018-07-31] MEDS: clonazePAM 0.5 MG TAB PO SCH (20:18)
[2018-07-31] MEDS: SPIRONOLACTONE 25 MG TAB PO SCH (20:18)
[2018-07-31] MEDS: CLOPIDOGREL BISULFATE 75 MG TAB PO SCH (20:18)
[2018-07-31] MEDS: ATORVASTATIN CALCIUM 40 MG TAB PO SCH (20:19)
[2018-07-31] MEDS: DULoxetine 60 MG CAP PO SCH (20:19)
[2018-07-31] MEDS: FAMOTIDINE 20 MG TAB PO SCH (20:19)
[2018-08-01] MEDS: POLYETHYLENE GLYCOL 3350 17 GM PKT PO PRN (03:23)
[2018-08-01] MEDS: LEVOTHYROXINE 50 MCG TAB PO SCH (05:39)
[2018-08-01] MEDS: HYDROCODONE/APAP 5/325 TAB PO PRN ×2 (06:44→13:00)
[2018-08-01 07:31] VITALS: BP 119/86
[2018-08-01] MEDS: SENNOSIDES/DOCUSATE SODIUM TAB PO SCH (08:42)
[2018-08-01] MEDS: ASPIRIN 81 MG CHEWABLE TAB PO SCH (08:42)
[2018-08-01] MEDS: CHOLECALCIFEROL VIT D3 1,000 UNITS TAB PO SCH (08:42)
[2018-08-01] MEDS: PANTOPRAZOLE SODIUM 40 MG TAB PO SCH (08:42)
--- NOTE | 2018-08-01 08:45 | SOAPPROG ---
SOAP Progress Note Assessment/Plan: Assessment: s/p right knee medial compartment arthroplasty revision to total knee arthroplasty - POD 3 - performed by Dr. Gupta Anemia - expected initially post-op, asymptomatic, continue to monitor Plan: Continue d/c planning - Patient would like to go to rehab at [facility]. Waiting for insurance authorization Continue VTE ppx- Continue plavix, SCDs Continue PT/OT efforts - WBAT with assistance, ROM as tolerated. Needs clearance from therapy prior to d/c Continue oral pain medications Subjective: Patient states she is not feeling as good today as she did yesterday, but she believes it is because of some increased pain. She would like to go to [facility] today, we are waiting on insurance approval. Patient denies SOB, CP, fever , chills, nausea, numbness, tingling. Objective: Vital Signs Temp Pulse Resp BP Pulse Ox 37.4 C 87 17 119/86 H 94 08/01/18 07:30 08/01/18 07:30 08/01/18 07:30 08/01/18 07:30 08/01/18 07:30 Laboratory Results 07/31/18 05:13 07/29/18 08:30 07/31/18 08/01/18 08/02/18 05:59 05:59 05:59 Intake Total 1350 Output Total 850 200 Balance -850 1150 Patient resting in bed, no acute distress. RLE: Wound dressings over the knee are clean, dry and intact. Wound dressing over the distal tibia are saturated with blood. This will be changed prior to d/c. Lower leg compartments are soft, mild calf tenderness. Negative Homans sign. She can actively DF and PF her right foot and great toe against resistance. Grossly NVI distally. ICD10 Worksheet Patient Problems: Problems Problem Status Onset Right knee pain Acute Ataxia Acute TIA (transient ischemic attack) Acute
--- NOTE | 2018-08-01 08:55 | PDDCSUM ---
Discharge Summary Discharge Summary: ADMISSION DIAGNOSIS: Right knee arthritis in lateral and patellofemoral compartments, medial compartment femoral and tibial component loosening DISCHARGE DIAGNOSIS: Right knee arthritis in lateral and patellofemoral compartments, medial compartment femoral and tibial component loosening OPERATION PERFORMED: July 28, 2018, Right knee medial compartment arthroplasty conversion to right total knee arthroplasty, Keiht robot assisted POSTOPERATIVE COMPLICATIONS: None CONDITION ON DISCHARGE: Improved HPI: The patient is a 77 year old female who has a history of right knee medial compartment arthroplasty in 2011. Over the past 9 months, her right knee pain and stiffness has been worsening. Imaging revealed loosening of the femoral and tibial medial compartment components as well as worsening arthritis in the lateral and patellofemoral compartments. Patient has failed attempts at conservative management, therefore, recommended operative right knee medial compartment arthroplasty conversion to right total knee replacement. DESCRIPTION OF HOSPITAL COURSE: The patient was admitted to the hospital on the morning of surgery and underwent conversion of right medial compartment arthroplasty to right total knee arthroplasty, Keith robot assisted. Postoperatively, patient was treated with multimodal DVT prophylaxis, including aspirin 81 mg twice per day, restarted Plavix, SCDs and ROXY hose. Patient was seen by PT and made good progress with ambulation and stairs. Her most recent H& H was 9.1/27.2. Patient was able to void spontaneously. Patient is awaiting insurance approval to [facility]. At the time of discharge, patient was afebrile, wounds were clean and dry. Patient is walking with a walker. DISPOSITION: The patient will be discharged to [facility] once we receive insurance approval. Patient may progress to full weightbearing on the right lower extremity as tolerated. She will continue to take Plavix. We will stop aspirin due to compromised kidney function. Patient has prescription for [place] for pain control. The patient will be seen by Dr. Dos Santos office in approximately 2 weeks. If there are any problems, patient is to call Dr. Dos Santos office.
--- NOTE | 2018-08-01 09:20 | PDIAF ---
- Diagnosis Diagnosis: Right knee osteoarthritis Code Status: Full Code - Medication Management Discharge Medications: electronically signed and located in the Home Medication List. - Orders Services needed: Physical Therapy, Occupational Therapy Diet Recommendation: no restrictions on diet Diet Texture: Regular Texture Diet Additional Instructions: Weightbear as tolerated on right lower extremity. Initiate PT and HEP for ROM, strengthening, and gait training. Keep dressing clean and dry for 7 days and then may removed dressing. TEDs x 10 days post op. She will continue her normal dose of Plavix for VTE prophylaxis. She will stop aspirin. Follow up with Dr. Gupta in 14 days for repeat evaluation and wound check - Follow Up Care Current Providers and Referrals: Matthew Gupta MD [Medical Doctor] - follow up in 2 weeks Rafael East MD [Primary Care Provider] -
--- NOTE | 2018-08-01 10:13 | ASMTLACE ---
ROBERT Length of stay for Answers: 3 days current admission Acuity / Level of Answers: Yes Care: Did the patient have an inpatient admission? Comorbidities - select Answers: Cerebrovascular disease all that apply (CVA, TIA, aneurysms, vasc ular dementia) Mild liver or renal disease Opioid dependence / Chronic pain Other Notes: Hypothyroid; HTN # of Emergency department Answers: 0 visits in the last 6 months Social determinants Answers: Mental health diagnosis (anxiety, depression, pers onality disorders, etc.) Score: 17 Date Signed: 08/01/2018 10:12 AM Electronically Signed By:ROBBIN Gifford
--- NOTE | 2018-08-01 14:11 | ASMTDCNOTE ---
Case Management Discharge Discharge Order Complete? Answers: Yes Patient to Obtain Answers: Other Notes: [facility] Medications Transportation Arranged Answers: Other Notes: Will Bautista w/c Transport will Pick (Date 08/01/2018 01:00 PM & Time) Faxed Final Orders Answers: Yes Agency/Facility Transfer Answers: Yes Report Printed & Faxed to Receiving Agency Discharge Comments Notes: Pt is discharging to [facility] today. D/C order, meds, facility transfer sent via [employer]. Transport arranged by [facility] Will Bautista. Date Signed: 08/01/2018 02:02 PM Electronically Signed By:ROBBIN Gifford
--- NOTE | 2018-08-01 14:11 | ASDISCHSUM ---
Discharge Information Plan Status:SNF Medically Cleared to Leave:08/01/2018 Discharge Date:08/01/2018 01:17 PM CM D/C Disposition:Residential Facility ADT D/C Disposition:Residential Facility Projected Discharge Date:08/01/2018 11:00 AM Transportation at D/C:Wheelchair Van Discharge Delay Reason: Follow-Up Date:08/01/2018 11:00 AM Discharge Slot: Final Diagnosis: Placement Information Referral Type:*Alf/SNF Referral ID:[id number] Provider Name:JIN Liriano Address 1:[address] Address 2: City:[place] Selection Factors: State:[place] Patient Contact Information Contact Name:EVA Relationship:Daughter Address: Home Phone: City:[place] Alternate Phone: [facility]/Zip Code:[place] Email: Financial Information Financial Class:Medicare Advantage Plans Primary Plan Desc:[facility] [employer] Primary Plan Number:[id number] Secondary Plan Desc: Secondary Plan Number: Assessment Information LACE LACE Length of stay for Answers: 3 days current admission Acuity / Level of Answers: Yes Care: Did the patient have an inpatient admission? Comorbidities - select Answers: Cerebrovascular disease all that apply (CVA, TIA, aneurysms, vasc ular dementia) Mild liver or renal disease Opioid dependence / Chronic pain Other Notes: Hypothyroid; HTN # of Emergency department Answers: 0 visits in the last 6 months Social determinants Answers: Mental health diagnosis (anxiety, depression, pers onality disorders, etc.) Score: 17 Date Signed: 08/01/2018 10:12 AM Electronically Signed By:ROBBIN Gifford [facility] CM Progress Note CM Note CM Note Notes: Pt had planned OA of knee. Pt resides alone. PT/OT rec SNF. Pt agrees SNF will be safest discharge and requests to rehab at [facility] where her mother resides. Referral sent in [employer] and pt clinically accepted. BM has sent for [employer] insurance authorization. D/c plan of care: [facility] when insurance approves and pt medically stable Date Signed: 07/30/2018 01:51 PM Electronically Signed By:ROBBIN Soria [facility] CM Progress Note CM Note CM Note Notes: By close of business [employer] insurance auth is not obtained by [facility]. Pt is pre-arranged with transport for [facility] tomorrow in the case the insurance authorization comes in. D/c plan: [facility] when insurance approves Date Signed: 07/31/2018 05:03 PM Electronically Signed By:ROBBIN Soria Case Management Discharge Plan Note Case Management Discharge Discharge Order Complete? Answers: Yes Patient to Obtain Answers: Other Notes: [facility] Medications Transportation Arranged Answers: Other Notes: Will Bautista w/c Transport will Pick (Date 08/01/2018 01:00 PM & Time) Faxed Final Orders Answers: Yes Agency/Facility Transfer Answers: Yes Report Printed & Faxed to Receiving Agency Discharge Comments Notes: Pt is discharging to [facility] today. D/C order, meds, facility transfer sent via [employer]. Transport arranged by [facility]. Date Signed: 08/01/2018 02:02 PM Electronically Signed By:ROBBIN Gifford Intervention Information Intervention Type:*IM-Signed Date of Service:08/01/2018 10:17 AM Patient Type:Inpatient Staff Member:Faith Silvestre Hours: Discipline: Severity: Comment:
== END 2018-08-01 13:17 | DRG 468 ==
LOC: F2N 07:11 → F3N 08:37
PROVIDERS: ADMIT Orthopaedic Surgery; ATTEND Orthopaedic Surgery
DX: T84.032A Mechanical loosening of internal right knee prosthetic joint, initial encounter (principal); M17.11 Unilateral primary osteoarthritis, right knee; I12.9 Hypertensive chronic kidney disease with stage 1 through stage 4 chronic kidney disease, or unspecified chronic kidney disease; N18.3 Chronic kidney disease, stage 3 (moderate); E21.3 Hyperparathyroidism, unspecified; F41.9 Anxiety disorder, unspecified; F31.9 Bipolar disorder, unspecified; K21.9 Gastro-esophageal reflux disease without esophagitis; M10.9 Gout, unspecified; N39.46 Mixed incontinence; J45.909 Unspecified asthma, uncomplicated; E78.00 Pure hypercholesterolemia, unspecified; Z86.718 Personal history of other venous thrombosis and embolism; Z86.73 Personal history of transient ischemic attack (TIA), and cerebral infarction without residual deficits
CPT/HCPCS: 97110-GP; 97116-GP; 97161-GP; 97165-GO; 97535-GO; C1713; J0690; J1885; J2250; J2370; J2704; J2795; J3010